=== PATIENT | female | born 1990 | race Caucasian/White ===

== ENCOUNTER 2019-04-10 04:22 | Outpatient (CLI) | payer OTHER, SELFPAY ==
[2019-04-10 04:41] VITALS: BMI 22.6
--- NOTE | 2019-04-10 05:36 | OB.TRI.NOTE ---
- Problem List (1) Second degree perineal laceration Status: Acute History of Present Illness Date of Service: 04/10/19 Was patient seen by the physician?: Yes Reason For Visit: POST REPAIR History of Present Illness: 29-year-old G1, P1 who is less than 6 hours from a home presents with perineal laceration. Laceration is a second-degree perineal and is minimal blood loss. Patient delivered at home with stress prone and the cage shift manager did not feel comfortable correcting it at home and therefore she brought her in. Minimal blood loss overall and fundal height at 21 to 22 cm. Allergies No Known Allergies Allergy (Verified 04/10/19 04:41) Review of Systems Constitutional: Denies: Fever, Malaise Eyes: Denies: Blurred vision, Vision Change HEENT: Denies: Head Aches, Visual Changes Cardiovascular: Denies: Chest Pain, Palpitations Respiratory: Denies: Cough, Shortness of Breath, Wheezing Gastrointestinal: Denies: Abdominal Pain, Diarrhea, Nausea, Vomiting Genitourinary: Denies: Dysuria, Hematuria Musculoskeletal: Denies: Joint Pain, Muscle pain Skin: Denies: Lesions, Rash Neurological: Denies: Blurred vision, Focal weakness, Headaches Psychiatric: Denies: Anxiety, Depression Endocrine: Denies: Heat/ Cold Intolerance Hematologic/ Lymphatic: Denies: Easy Bruising, Easy Bleeding Physical Exam General: Alert, Cooperative, No apparent distress HEENT: Atraumatic, Normocephalic. Negative for: Thyromegaly, Lymphadenopathy Cardiovascular: Regular rate Lungs: Normal air movement Abdomen: Soft, Non Tender, - - Fundal height 21 cm Neurological: Neuro grossly intact [employer]: Normal external genitalia - Second-degree perineal laceration noted. Negative for: Vulvar lesions Impression/Plan -year-old with second-degree perineal laceration after home Area covered with Betadine and injected with 1% lidocaine. 5 cm laceration repaired in the usual fashion with 3-0 Vicryl Rapide without complication. EBL 25 cc. Patient declines additional evaluation for her or her baby. Discharge to home follow-up with cage shift manager as an outpatient. Multi Select Codes - Visit Charges Office Visit/Consults: 15736 OV L3 New - Integumentary Integumentary CPT Codes: 51517 Rpr f/e/e/n/l/m 2.6-5.0 cm
[2019-04-10 05:45] VITALS: RESP 18
== END 2019-04-10 05:19 | disposition home or self-care (01) ==
LOC: WPOUT 04:38 → WP 04:38
PROVIDERS: Visit Provider Obstetrics & Gynecology
DX: O70.1 Second degree perineal laceration during delivery (principal)
CPT/HCPCS: 12013